=== PATIENT | female | born 1970 | race Caucasian/White ===

== ENCOUNTER 2023-04-01 08:28 | Emergency (ER) | payer OTHER ==
[~2023-04-01] VITALS: Ht 170.2 cm; Wt 65.8 kg
[2023-04-01] MEDS ORDERED: LEVOTHYROXINE50 MC1 PO (08:35)
[2023-04-01 11:16] LABS: HEMATOCRIT 36.8 % (36.0-45.00); HEMOGLOBIN 12.6 g/dL (12.0-15.00); MEAN CELL VOLUME 94.4 fL (80.00-100.00); MEAN CORPUSCULAR HEMOGLOBIN 32.2 pg (27.00-32.0); MEAN CORPUSCULAR HGB CONC 34.1 g/dl (32.0-36.0); PLATELET COUNT 312 K/uL (150-450); RED CELL DISTRIBUTION WIDTH 13.5 % (11.5-14.5)
== END 2023-04-01 12:25 | disposition home or self-care (01) ==
LOC: ER 08:29
PROVIDERS: General Practice
DX: J04.0 Acute laryngitis (principal); E03.9 Hypothyroidism, unspecified; J03.80 Acute tonsillitis due to other specified organisms
CPT/HCPCS: 36415; 96372; 99284; J0696; J1100